=== PATIENT | female | born 1990 | race Two or more races ===

== ENCOUNTER 2019-11-04 18:25 | Emergency (ER) | payer MEDICAID ==
[~2019-11-04] VITALS: Ht 165.1 cm; Wt 66.7 kg
[2019-11-04 18:53] VITALS: BP_SYST 119
--- NOTE | 2019-11-04 20:04 | NUR ---
Patient to ER bed 08 to gown for evaluation. Side rails up.
--- NOTE | 2019-11-04 20:08 | NUR ---
Patient AAO x 4 ambulates to ER bed 08 with complaints of 7/10 L hand pain s/p dog bite prior to arrival. Swelling is noted, but there are no deformities. Bleeding appears to be controlled. Even chest rise and fall with respirations. Will continue to monitor.
[2019-11-04] MEDS ORDERED: DIPH-TET-PERTUS Vaccine 0.5 ML VIAL (ADACEL) I.M. ONE (20:45)
[2019-11-04] MEDS ORDERED: AMOXICILLIN/CLAVULANATE POTASSIUM 875 MG TABLET PO ONE (20:45)
[2019-11-04] MEDS ORDERED: IBUPROFEN 800 MG TABLET PO ONE (20:45)
[2019-11-04] MEDS ORDERED: BACITRACIN 1 GM OINT TP ONE (20:45)
--- NOTE | 2019-11-04 21:00 | NUR ---
Volar splint applied to L forearm. Pt tolerted well. +CMS. No other injuries/complaints per pt/noted. Will continue to monitor.
[2019-11-04 21:28] VITALS: BP_SYST 124
--- NOTE | 2019-11-04 21:29 | NUR ---
Patient given written and verbal discharge instructions and verbalizes understanding. ER [facility] Madina discussed with patient the results and treatment provided. Patient in stable condition. ID arm band removed. Rx of Augmentin, Bacitracin, [place], Motrin given. Patient educated on pain management and to follow up with PMD. Pain Scale 0. Opportunity for questions provided and answered. Medication side effect fact sheet provided.
== END 2019-11-04 21:29 | disposition home or self-care (01) ==
LOC: SED 18:25
DX: S61.452A Open bite of left hand, initial encounter (principal); W54.0XXA Bitten by dog, initial encounter; Y93.89 Activity, other specified; Y92.89 Other specified places as the place of occurrence of the external cause; Y99.8 Other external cause status
CPT/HCPCS: 90715; 99284